=== PATIENT | male | born 1985 | race Caucasian/White ===

== ENCOUNTER 2025-03-03 13:36 | Emergency (ER) | payer OTHER ==
[2025-03-03] MEDS: Lidocaine 1% with EPINEPHrine 1:100,000 20 ML MDV INFILT PRN (13:55)
[2025-03-03] MEDS: Diphtheria,Pertussis(Acell),Tetanus Vaccine 0.5 ML Syringe IM ONE (14:12)
== END 2025-03-03 14:22 | disposition home or self-care (01) ==
LOC: VM.ED 13:36
DX: S01.411A Laceration without foreign body of right cheek and temporomandibular area, initial encounter (principal); Z23 Encounter for immunization; W29.0XXA Contact with powered kitchen appliance, initial encounter
CPT/HCPCS: 12011; 90471; 90715; 99282; J2004; 99283